=== PATIENT | female | born 1990 ===

== ENCOUNTER 2019-07-08 05:13 | Inpatient (IN) | payer OTHER, SELFPAY ==
[2019-07-08] MEDS ORDERED: Ondansetron PF 4 MG/2 ML Vial IVP PRN ×3 (05:39→09:44)
[2019-07-08] MEDS ORDERED: Promethazine HCl 25 MG/ML VIAL IM PRN ×2 (05:39→07:54)
[2019-07-08] MEDS ORDERED: Lactated Ringer's 1,000 ML IV SCH (05:39)
[2019-07-08] MEDS ORDERED: hydrALAZINE 20 MG/ML VIAL SLOW IVP PRN ×2 (05:39→09:44)
[2019-07-08] MEDS ORDERED: Bicitra 30 ML UDCUP PO SCH (05:45)
[2019-07-08] MEDS ORDERED: CEFAZOLIN 2 GM in Premix Bag 1 BAG IVPB SCH (05:45)
[2019-07-08 05:58] LABS: Hemoglobin 11.7 g/dL (12.0-16.0); Mean Corpuscular HGB CONC 33.5 g/dL (32.0-36.0); Mean Corpuscular Hemoglobin 30.6 pg (27.0-31.0); Mean Corpuscular Volume 91.3 fL (78.0-98.0); Mean Platelet Volume 10.2 fL (7.4-10.4); Platelet Count 216 thou/uL (130-400); Red Blood Cell (RBC) Count 3.82 mill/uL (4.20-5.40); White Blood Cell (WBC) Count 18.2 thou/uL (4.8-10.8)
[2019-07-08 06:04] VITALS: BMI 26.3
[2019-07-08 06:35] LABS: Syphilis Antibody Nonreactive (Nonreactive); Syphilis Antibody Index 0.05 S/CO (<1.00 Non-Reactive)
[2019-07-08 06:36] LABS: HBSAg Index 0.16 S/CO (0-0.99); Hep B Surf Ag Non-Reactive S/CO (NonReactive)
[2019-07-08] MEDS ORDERED: EPHEDRINE 25 MG/5 ML SYRINGE ONE (07:31)
[2019-07-08] MEDS ORDERED: Ondansetron PF 4 MG/2 ML Vial ONE (07:31)
[2019-07-08] MEDS ORDERED: MORPHINE 5 MG/10 ML PF VIAL ONE (07:31)
[2019-07-08] MEDS ORDERED: Oxytocin 10 UNITS/ML VIAL ONE ×2 (07:31→09:00)
[2019-07-08] MEDS ORDERED: Dexamethasone 4 mg/ml Vial ONE (07:31)
[2019-07-08] MEDS ORDERED: PHENYLEPHRINE-NS 100 MCG/ML 10 ML SYRINGE ONE (07:49)
[2019-07-08] MEDS ORDERED: Ondansetron HCl/PF 4 MG/2 ML Vial IVP PRN (07:54)
[2019-07-08] MEDS ORDERED: Promethazine HCl 25 MG SUPP PR PRN (07:54)
[2019-07-08] MEDS ORDERED: diphenhydrAMINE 50 MG/ML VIAL IVP PRN (07:54)
[2019-07-08] MEDS ORDERED: Meperidine HCl/PF 25 MG/ML VIAL SLOW IVP PRN (07:54)
[2019-07-08] MEDS ORDERED: Naloxone HCl 0.4 mg/ml Vial IV PRN (07:54)
[2019-07-08] MEDS ORDERED: Naloxone HCl 0.4 mg/ml Vial IVP PRN ×2 (07:54)
[2019-07-08] MEDS ORDERED: HYDROmorphone 2 MG/ML VIAL SLOW IVP PRN (07:54)
[2019-07-08] MEDS ORDERED: L&D-Morphine 4 MG/ML VIAL SLOW IVP PRN (07:54)
[2019-07-08] MEDS ORDERED: Ketorolac Tromethamine 30 MG/ML VIAL IVP SCH (08:00)
[2019-07-08] MEDS ORDERED: Communication Order-Pharmacy FS SCH (08:00)
[2019-07-08] MEDS ORDERED: Lanolin Ointment 7 GM TUBE TOP PRN (09:44)
[2019-07-08] MEDS ORDERED: HYDROcodone/Acetaminophen 5/325 mg Tablet PO PRN (09:44)
[2019-07-08] MEDS ORDERED: diphenhydrAMINE 25 MG CAP PO PRN (09:44)
[2019-07-08] MEDS ORDERED: Misoprostol 200 MCG TAB PR PRN (09:44)
[2019-07-08] MEDS ORDERED: Zolpidem Tartrate 5 MG TAB PO PRN (09:44)
[2019-07-08] MEDS ORDERED: Bisacodyl 10 MG SUPP PR PRN (09:44)
[2019-07-08] MEDS ORDERED: Acetaminophen 325 MG TAB PO PRN (09:44)
[2019-07-08] MEDS ORDERED: Simethicone Chewable 80 MG TAB PO PRN (09:44)
[2019-07-08] MEDS ORDERED: Meperidine HCl/PF 25 MG/ML VIAL IM PRN (09:44)
[2019-07-08] MEDS ORDERED: NS / Oxytocin 40 units/1000ml 1,000 ML IV SCH (09:45)
[2019-07-08] MEDS ORDERED: Ketorolac Tromethamine 30 MG/ML VIAL ONE (10:09)
[2019-07-08] MEDS ORDERED: Meperidine HCl/PF 25 MG/ML VIAL ONE (10:09)
[2019-07-08] MEDS: Ketorolac Tromethamine 30 MG/ML VIAL IVP PRN ×3 (10:23→23:36)
[2019-07-08] MEDS: Lactated Ringer's 1,000 ML IV SCH ×2 (12:58→17:34)
[2019-07-08] MEDS: Ibuprofen 800 MG TAB PO SCH (14:17)
[2019-07-09] MEDS: Ferrous Sulfate 325 MG TAB PO SCH ×2 (00:40→10:51)
[2019-07-09] MEDS: Docusate Calcium (SURFAK) 240 MG CAP PO SCH ×3 (00:40→22:20)
[2019-07-09] MEDS: Ibuprofen 800 MG TAB PO SCH ×4 (00:41→22:21)
[2019-07-09] MEDS: Lactated Ringer's 1,000 ML IV SCH ×3 (06:33→14:32)
[2019-07-09] MEDS: Prenatal Vitamin 1 TAB PO SCH (07:57)
[2019-07-09] MEDS ORDERED: Adacel (T-DAP) 0.5 ML SYRINGE IM ONE (09:00)
[2019-07-09 10:38] LABS: Hemoglobin 11.2 g/dL (12.0-16.0); Mean Corpuscular HGB CONC 33.2 g/dL (32.0-36.0); Mean Corpuscular Volume 93.3 fL (78.0-98.0); Mean Platelet Volume 10.2 fL (7.4-10.4); Platelet Count 214 thou/uL (130-400); RBC Distribution Width 13.1 % (11.5-14.5); Red Blood Cell (RBC) Count 3.62 mill/uL (4.20-5.40); White Blood Cell (WBC) Count 16.5 thou/uL (4.8-10.8)
[2019-07-09] MEDS: HYDROcodone/Acetaminophen 5/325 mg Tablet PO PRN ×3 (10:46→22:21)
--- NOTE | 2019-07-09 15:53 | OP ---
DATE OF PROCEDURE: 07/08/2019 PRIMARY SURGEON: Dr. Darryn Mariee RESIDENT SURGEON: Key Villa DO PROCEDURE PERFORMED: Repeat low-transverse section. PREOPERATIVE DIAGNOSES: 1. Term intrauterine . 2. Previous x2. 3. History of herpes simplex virus 2. POSTOPERATIVE DIAGNOSES: 1. Term intrauterine , delivered. 2. Previous x2. 3. History of herpes simplex virus 2. ANESTHESIA: Spinal. INDICATIONS: This is a 29-year-old G3, P2-0-0-2 at 39 weeks' gestation, who presents for repeat scheduled . PROCEDURE IN DETAIL: After risks, benefits, and alternatives were explained to the patient, she gave informed consent. Preoperative antibiotics included cefazolin 2 g IV. The patient was taken to the operating room and spinal anesthesia was initiated. She was placed in supine position with a left tilt and prepped and draped in the usual sterile fashion. The previous scar was excised in an elliptical fashion. A Pfannenstiel incision was then made and carried down to the level of the fascia, which was sharply nicked. There was noted to be fairly extensive scarring during this process. The fascial cut was extended bilaterally with Acosta scissors. The inferior and superior edge of the cut fascial edges were elevated with Justin clamps and the underlying rectus muscles were dissected free utilizing a scalpel and Acosta scissors. The recti muscles were in the midline using 2 hemostats and Acosta scissors. The peritoneum was entered bluntly and retracted manually. The Bladder blade was placed. Bladder flap was created with Metzenbaum scissors. A low-transverse score was made with a scalpel and the uterus was entered in the midline with the scalpel. Clear fluid was seen. The hysterotomy was extended manually. Infant was noted to be vertex and was delivered via vacuum assistance with no pop offs and less than 20 seconds of application. The cup of the vacuum was placed on the flexion point. The vacuum manometer reached the green zone and gentle traction was applied for delivery of the head through the hysterotomy site. After delivery of infant through the hysterotomy, the mouth and nares were bulb suctioned. Cord was clamped and cut and grossly normal male infant was handed to the awaiting nurse. Cord blood was obtained. Placenta was manually extracted and found to be intact with 3-vessel cord and discarded. Uterus was externalized and endometrium was curetted with a dry lap. The bladder blade was replaced. The uterus was closed with a running locking #1 chromic suture, followed by several [id number] stitches for hemostasis. The bladder flap was then closed using 2-[address] The abdomen was suctioned free of clots. Seprafilm was placed. The uterus was then internalized and again noted to be hemostatic. The peritoneum was closed using 2-0 Vicryl in a running nonlocking fashion. The rectus muscles were then brought together using 2-0 Vicryl and #1 chromic with figure of eight stitches for approximation. The rectus muscles were examined and bleeders were cauterized. The fascia was then closed using 0 Vicryl suture in a running nonlocking fashion. The subcutaneous tissue was irrigated and bleeders were cauterized. The subcutaneous tissues were then brought together using 2-0 plain gut in simple interrupted fashion. The skin was then approximated using 4-0 Monocryl. Dermablond was applied over incision. Fluffs and foam tape were placed for abdominal dressing. Ice pack applied. All counts were correct. The patient tolerated the procedure well and was taken to the recovery room in stable condition. ESTIMATED BLOOD LOSS: 260 mL. COMPLICATIONS: None. SPECIMENS: Cord blood sent to lab for blood type. FINDINGS: Grossly normal male infant with Apgars of 8 and 9 at one and five minutes respectively. Weight of 3.487 kg. Grossly normal placenta with 3-vessel cord, discarded. DRAINS: Carlson to gravity, draining clear urine. Job ID: [id number] [facility]
[2019-07-10] MEDS: Ferrous Sulfate 325 MG TAB PO SCH ×2 (00:23→09:41)
[2019-07-10] MEDS: HYDROcodone/Acetaminophen 5/325 mg Tablet PO PRN ×2 (03:17→08:35)
[2019-07-10] MEDS: Lactated Ringer's 1,000 ML IV SCH ×2 (03:26→10:41)
[2019-07-10] MEDS: Ibuprofen 800 MG TAB PO SCH ×2 (05:54→14:30)
[2019-07-10 09:26] VITALS: BP 100/58; TEMP 98.4
[2019-07-10] MEDS: Docusate Calcium (SURFAK) 240 MG CAP PO SCH (09:40)
[2019-07-10] MEDS: Prenatal Vitamin 1 TAB PO SCH (09:40)
== END 2019-07-10 15:15 | disposition home or self-care (01) | DRG 787 ==
LOC: L&D 05:13 → 3SW 11:34
PROVIDERS: ADMIT Obstetrics & Gynecology; ATTEND Obstetrics & Gynecology
PROC: 10D00Z1 Extraction of Products of Conception, Low, Open Approach (ICD-10-PCS; principal; 2019-07-08)
PROC: 3E0P05Z Introduction of Adhesion Barrier into Female Reproductive, Open Approach (ICD-10-PCS; 2019-07-08)
DX: O34.211 Maternal care for low transverse scar from previous cesarean delivery (principal); O98.52 Other viral diseases complicating childbirth; Z3A.39 39 weeks gestation of pregnancy; Z37.0 Single live birth; B00.9 Herpesviral infection, unspecified
CPT/HCPCS: 36415; 51702; 85027; 86780; 86850; 86900; 86901; 87340; J0690; J1100; J1885; J2175; J2274; J2405; J2590